=== PATIENT | female | born 1990 | race Caucasian/White ===

== ENCOUNTER 2021-07-04 00:11 | Inpatient (IN) | payer BC ==
[2021-07-04] MEDS ORDERED: Acetaminophen 325 MG Tab PO PRN (00:19)
[2021-07-04] MEDS ORDERED: Sodium Chloride 0.9% 10 ML Syringe FLUSH PRN ×2 (00:19→19:11)
[2021-07-04] MEDS ORDERED: Oxytocin/Normal Saline 30 UNIT/500 ML BAG IV SCH (00:30)
[2021-07-04] MEDS: Misoprostol 25 MCG (1/4 of 100 MCG) Tab VAG PRN ×2 (01:32→08:01)
--- NOTE | 2021-07-04 03:47 | HP ---
HISTORY OF PRESENT ILLNESS: A 31-year-old, G2, P0-0-1-0, female, currently at 41 weeks 1/7 days based on last menstrual period, 09/19/2020. Presents for induction of labor for post-date . The patient denies any bleeding, leakage of fluid, or contractions. She reports good movement. OBSTETRICAL HISTORY: overall unremarkable at AB0, A-positive, AB screen negative. The patient had history of low-lying placenta which resolved on 04/11/2021. The patient's 1-hour glucose tolerance test was 141, but the patient passed 3-hour oral glucose tolerance test. In 3rd trimester, the patient was diagnosed with anemia of with a hemoglobin of 11.7. LABORATORY: Hemoglobin on admission 11.4. Platelets on admission, 175. Rubella immune. RPR nonreactive. Hepatitis B surface antigen nonreactive. HIV is nonreactive. Hepatitis C nonreactive. Gonorrhea and chlamydia negative. Wet prep negative. GBS negative. 1-hour glucose tolerance test 141 but passed 3-hour glucose tolerance test. PAST MEDICAL HISTORY: Significant for miscarriage in 2019. PAST SURGICAL HISTORY: [place] and baby teeth extraction in 2003. FAMILY HISTORY: Sister has PCOS and maternal grandfather has type 2 diabetes. SOCIAL HISTORY: The patient and , Pérez, live in [facility]. Pérez is a manager background at [employer], and the patient works in finance. No pets at home. REVIEW OF SYSTEMS: As per history of present illness. Otherwise, denying fever, chills, cough, cold symptoms, headaches, blurry vision, chest pain, shortness of breath, right upper quadrant pain, nausea, vomiting, or other concerns. MEDICATIONS: vitamins. ALLERGIES: No known drug allergies. OBJECTIVE: Vital Signs: Temperature 97.7, heart rate 66, respiratory rate 16, blood pressure 134/68. HEENT: Grossly unremarkable. Heart: Regular, without murmur. Lungs: Clear to auscultation bilaterally with good chest expansion. Abdomen: Gravid, soft, nontender. Extremities: Mild edema. No tenderness or erythema noted. Skin: Warm, without rashes. Neurological: Appropriate, with no focal deficits. [place]: Contractions every 4 minutes, not felt by the patient. monitor category 1 with 125 base heart rate. Cervical: 1 cm dilated, 60% effaced, negative 2 station. ASSESSMENT: 1. Intrauterine at 41 weeks and 1 day confirmed with last menstrual period of 09/19/2020. 2. -0-1-0. 3. History of low-lying placenta, resolved on 04/11/2021. 4. Impaired glucose tolerance in with passed 3-hour glucose tolerance test. 5. Anemia during , 3rd trimester, with hemoglobin of 11.4 on admission. 6. History of previous miscarriage. PLAN: Routine induction of labor with 25 mcg cytotec Planning for future intrathecal for pain management and possible artifical rupture of membranes once head is well applied against cervix. Seen with medical student. Patient was personally seen and examined with the medical student practitioner student, Eda Ortez. I reviewed the noted scribed on my behalf and necessary changes have been made to reflect my opinion on the history, exam, assessment, and plan- Manuelito Berg MD [facility] /[id number] MTDAdelina
[2021-07-04] MEDS: Lactated Ringers 1,000 ML IV SCH ×3 (11:59→16:53)
[2021-07-04] MEDS ORDERED: Nalbuphine 10 MG/1 ML Vial IM ONE (14:19)
--- NOTE | 2021-07-04 14:31 | PN ---
DATE: 07/04/2021 SUBJECTIVE: The patient is feeling her contractions, felt in the lower abdomen, rated 5/10. She is now status post Cytotec 25 mcg x2. OBJECTIVE: heart tones currently in the 130s baseline range with at least two 15 x 15 beats per minute accelerations, in the last 5 to 10 minutes. Prior to that there were some concerns with recurrent variable decelerations and then what appeared to be some late decelerations that resolved with oxygen and position changes and none currently seen. Vaginal exam revealed her to be 2 cm, 60% to 75% effaced, -1 to -2 station, vertex suspected. Artificial rupture membranes done after discussion with patient yielding clear fluid. ASSESSMENT: Intrauterine at 41-1/7 weeks, confirmed with 8-5/7 weeks ultrasound. GBS negative. G2, P0-0-1-0 with impaired glucose tolerance with history of anemia of . She did have some minimally elevated transient blood pressures, and urinalysis was done and was not positive for preeclampsia. PLAN: She is now status post Cytotec x2 and then artificial rupture membranes as above. We will continue to follow clinically and closely. I did discuss with her following status closely given that she had some late decelerations that did resolve. Currently, she has a reactive strip but will need close followup and serial monitoring. The patient understands and agrees with above treatment plan. [facility] /[id number] MTDD
[2021-07-04] MEDS ORDERED: Ondansetron 4 MG/2 ML SDV IVPUSH PRN (14:48)
[2021-07-04] MEDS ORDERED: Sodium Chloride 0.9% 20 ML SDV ONE (16:25)
[2021-07-04] MEDS ORDERED: fentaNYL 100 MCG/2 ML SDV ITHECAL ONE (16:25)
[2021-07-04] MEDS ORDERED: Sodium Bicarbonate 4.2% 2.5 MEQ/5 ML SDV ONE ×2 (16:25→16:34)
[2021-07-04] MEDS ORDERED: EPINEPHrine 1 MG/ML SDV ONE ×2 (16:25→16:34)
[2021-07-04] MEDS ORDERED: fentaNYL 100 MCG/2 ML SDV ONE (16:34)
--- NOTE | 2021-07-04 16:57 | PCM.SN.2 ---
- Free Text/Narrative Note: Intrathecal. Sitting position, sterile prep and drape. 1% lidocaine w bicarb for skinwheal to L2 L3 interspace. Introducer, 24 ga pencan x 1. I:1000 pf epi wash, 20 mcg pf sufenta, 30 mcg pf fentanyl, 0.4 ml pf NS and 6 mg of 0.75% pf Marcaine injected after CSF aspiration. Pt to L lateral position. Procedure time 1625 to 1700 Time Documentation
[2021-07-04] MEDS ORDERED: Oxytocin/Normal Saline 60 UNIT/1,000 ML BAG ONE (18:37)
[2021-07-04] MEDS ORDERED: Lidocaine 1% 30 ML SDV ONE (18:56)
[2021-07-04] MEDS ORDERED: Docusate Sodium 100 MG Cap PO PRN (19:11)
[2021-07-04] MEDS ORDERED: Oxytocin 10 Units/1 ML SDV IM PRN (19:11)
[2021-07-04] MEDS ORDERED: Benzocaine/Menthol 20%-0.5% Spray 78 GM Cannister TOP PRN (19:11)
[2021-07-04] MEDS ORDERED: Simethicone 80 MG Tab.Chew PO PRN (19:11)
[2021-07-04] MEDS ORDERED: Misoprostol 400 MCG (4 X 100 MCG TAB) RECTAL PRN (19:11)
[2021-07-04] MEDS ORDERED: Tranexamic Acid 1,000 MG in Sodium Chloride 0.9% 100 ML IV PRN (19:11)
[2021-07-04] MEDS ORDERED: Zolpidem 5 MG Tab PO PRN (19:11)
[2021-07-04] MEDS ORDERED: Carboprost Tromethamine 250 MCG/1 ML Amp IM PRN (19:11)
--- NOTE | 2021-07-04 19:16 | PCM.DEL ---
Vacuum Extractor Progress Note - Alternative Labor Strategies Considered Alternative Labor Strategies Considered:: Reports: Yes Strategies Considered:: Reports: Contraction Intensity Adequate, Position Changes Used to Facilitate Rotation & Descent, Empty Bladder, Rest Indications Considered:: Reports: Yes Indications:: Reports: Suspicion of Immediate or Potential Compromise Time Out:: Reports: Yes - Patient Prepared Patient Prepared:: Reports: Yes Informed Consent:: Reports: Yes, Verbal Risks: Reports: Yes Risks Include:: Reports: Laceration, Shoulder Dystocia, Maternal Injury, Other ( injury) Anesthesia/Analgesia Adequate:: Reports: Yes - Probability of Success High Probability of Success:: Reports: Yes Weight Estimated:: Reports: AGA Patient Diabetic:: Reports: No Pelvis Adequate:: Reports: Yes Position:: LUCR[place]IA Asynclitic:: Reports: No Station:: vtx splitting labia - Application Time Maximum Application Time & Number of Pop-Offs Predetermined:: Reports: Yes Number of Times Cup Disengaged:: 2 (2 popoffs and one lost suction when releasing pressure-see nurses notes for further details and times) Type of Vacuum Used:: Reports: Cup: Soft (large kiwi) - Exit Strategy Exit strategy available:: Reports: Yes and resuscitation teams readily available:: Reports: Yes (c section team in house) - General Info Date of Service: 07/04/21 - Patient Data Vitals - Most Recent: Last Vital Signs Temp 97.6 F 07/04/21 16:45 Pulse 78 07/04/21 18:15 Resp 16 07/04/21 18:15 BP 131/73 07/04/21 18:15 Pulse Ox Weight - Most Recent: 90.265 kg Lab Results Last 24 Hours: Laboratory Results - last 24 hr 07/04/21 07/04/21 07/04/21 Range/Units 00:30 00:50 11:41 WBC 8.1 (5.0-10.0) 10^3/uL RBC 3.95 L (4.2-5.4) 10^6/uL Hgb 11.4 L (12.0-16.0) g/dL Hct 35.1 L (37.0-47.0) % MCV 88.9 (80-100) fL MCH 28.9 (27.0-34.0) pg MCHC 32.5 L (33.0-35.0) g/dL Plt Count 175 (150-450) 10^3/uL BUN (7-18) mg/dL Creatinine (0.55-1.02) mg/dL Est Cr Clr Drug Dosing mL/min Estimated GFR (MDRD) Uric Acid (2.6-6.0) mg/dL AST (15-37) U/L ALT (14-59) U/L Lactate Dehydrogenase (81-234) U/L Urine Color Yellow (YELLOW) Urine Appearance Clear (CLEAR) Urine pH 6.0 (5.0-9.0) Ur Specific [place] 1.025 (1.005-1.030) Urine Protein Negative (NEGATIVE) Urine Glucose (UA) Negative (NEGATIVE) Urine Ketones Negative (NEGATIVE) Urine Occult Blood Trace-intact H (NEGATIVE) Urine Nitrite Negative (NEGATIVE) Urine Bilirubin Negative (NEGATIVE) Urine Urobilinogen 0.2 (0.2-1.0) mg/dL Ur Leukocyte Esterase Negative (NEGATIVE) Ur Random Creatinine (No establ ref range) mg/dL U Random Total Protein (0.0-11.9) mg/dL Protein/Creatinin Ratio (<150.0) mg/g SARS-CoV-2 RNA (VARGAS) Negative (NEGATIVE) 07/04/21 07/04/21 07/04/21 Range/Units 11:41 11:55 11:55 WBC 9.5 (5.0-10.0) 10^3/uL RBC 3.93 L (4.2-5.4) 10^6/uL Hgb 11.5 L (12.0-16.0) g/dL Hct 34.9 L (37.0-47.0) % MCV 88.8 (80-100) fL MCH 29.3 (27.0-34.0) pg MCHC 33.0 (33.0-35.0) g/dL Plt Count 175 (150-450) 10^3/uL BUN 10 (7-18) mg/dL Creatinine 0.71 (0.55-1.02) mg/dL Est Cr Clr Drug Dosing 108.46 mL/min Estimated GFR (MDRD) > 60 Uric Acid 5.8 (2.6-6.0) mg/dL AST 13 L (15-37) U/L ALT 14 (14-59) U/L Lactate Dehydrogenase 143 (81-234) U/L Urine Color (YELLOW) Urine Appearance (CLEAR) Urine pH (5.0-9.0) Ur Specific [place] (1.005-1.030) Urine Protein (NEGATIVE) Urine Glucose (UA) (NEGATIVE) Urine Ketones (NEGATIVE) Urine Occult Blood (NEGATIVE) Urine Nitrite (NEGATIVE) Urine Bilirubin (NEGATIVE) Urine Urobilinogen (0.2-1.0) mg/dL Ur Leukocyte Esterase (NEGATIVE) Ur Random Creatinine 122.15 (No establ ref range) mg/dL U Random Total Protein 14.4 H (0.0-11.9) mg/dL Protein/Creatinin Ratio 117.9 (<150.0) mg/g SARS-CoV-2 RNA (VARGAS) (NEGATIVE) Med Orders - Current: Current Medications Acetaminophen (Acetaminophen 325 Mg Tab) 650 mg PO Q4H PRN PRN Reason: Pain/Fever Benzocaine/Menthol (Benzocaine/Menthol 20%-0.5% [place] 78 Gm Cannister) 0 gm TOP Q4H PRN PRN Reason: Perineal comfort measures Carboprost Tromethamine (Carboprost Tromethamine 250 Mcg/1 Ml Amp) 250 mcg IM ASDIRECTED PRN PRN Reason: Excessive vaginal bleeding Docusate Sodium (Docusate Sodium 100 Mg Cap) 100 mg PO BID PRN PRN Reason: Constipation Lactated Ringer's (Ringers, Lactated) 1,000 mls @ 125 mls/hr IV ASDIRECTED IVONNE Last Admin: 07/04/21 16:53 Dose: 125 mls/hr Documented by: Oxytocin/Sodium Chloride (Pitocin In Ns 30 Unit/500 Ml) 30 unit in 500 mls @ 2 mls/hr IV TITRATE IVONNE; Protocol Tranexamic Acid 1,000 mg/ (Sodium Chloride) 110 mls @ 660 mls/hr IV ONETIME PRN PRN Reason: Bleeding Ibuprofen (Ibuprofen 800 Mg Tab) 800 mg PO Q8H PRN PRN Reason: Cramping Misoprostol (Misoprostol 25 Mcg (1/4 Of 100 Mcg) Tab) 25 mcg VAG Q4H PRN PRN Reason: cervical ripening Last Admin: 07/04/21 08:01 Dose: 25 mcg Documented by: Misoprostol (Misoprostol 400 Mcg (4 X 100 Mcg Tab)) 800 mcg RECTAL ONETIME PRN PRN Reason: Hemorrhage Ondansetron HCl (Ondansetron 4 Mg/2 Ml Sdv) 4 mg IVPUSH Q4H PRN PRN Reason: Nausea/Vomiting Last Admin: 07/04/21 15:01 Dose: 4 mg Documented by: Oxytocin (Oxytocin 10 Units/1 Ml Sdv) 10 unit IM ONETIME PRN PRN Reason: Bleeding Prenat Multivit/[place]/Iron/Folic Ac ( Multivitamin With Calcium/Folic Acid/Iron Tab) 1 each PO DAILY IVONNE Simethicone (Simethicone 80 Mg Tab.Chew) 80 mg PO Q4H PRN PRN Reason: Gas Sodium Chloride (Sodium Chloride 0.9% 10 Ml Syringe) 10 ml FLUSH ASDIRECTED PRN PRN Reason: Keep Vein Open Sodium Chloride (Sodium Chloride 0.9% 10 Ml Syringe) 10 ml FLUSH ASDIRECTED PRN PRN Reason: Keep Vein Open Zolpidem Tartrate (Zolpidem 5 Mg Tab) 5 mg PO BEDTIME PRN PRN Reason: Insomnia Discontinued Medications Epinephrine HCl (Epinephrine 1 Mg/Ml Sdv) Confirm Administered Dose 1 mg .ROUTE .STK-MED ONE Stop: 07/04/21 16:35 Fentanyl (Fentanyl 100 Mcg/2 Ml Sdv) Confirm Administered Dose 100 mcg .ROUTE .STK-MED ONE Stop: 07/04/21 16:35 Oxytocin/Sodium Chloride (Pitocin In Ns 30 Unit/500 Ml) Confirm Administered Dose 60 unit in 1,000 mls @ as directed .ROUTE .STK-MED ONE Stop: 07/04/21 18:38 Cefazolin Sodium/Dextrose (Ancef 2 Gm/50 Ml) Confirm Administered Dose 50 mls @ as directed .ROUTE .STK-MED ONE Stop: 07/04/21 18:38 Lidocaine HCl (Lidocaine 1% 30 Ml Sdv) Confirm Administered Dose 30 ml .ROUTE .STK-MED ONE Stop: 07/04/21 18:57 Nalbuphine HCl (Nalbuphine 10 Mg/1 Ml Vial) 20 mg IM ONETIME ONE Stop: 07/04/21 14:20 Last Admin: 07/04/21 15:06 Dose: 20 mg Documented by: Sodium Bicarbonate (Sodium Bicarbonate 4.2% 2.5 Meq/5 Ml Sdv) Confirm Administered Dose 2.5 meq .ROUTE .STK-MED ONE Stop: 07/04/21 16:35 Sufentanil Citrate (Sufentanil 50 Mcg/1 Ml Amp) Confirm Administered Dose 50 mcg .ROUTE .STK-MED ONE Stop: 07/04/21 16:35 - Problem List Review Problem List Initiated/Reviewed/Updated: No - My Orders Last 24 Hours: My Active Orders 07/04/21 Breakfast Regular Diet [DIET] 07/04/21 Lunch Regular Diet [DIET] 07/04/21 13:20 Nitrous Oxide Delivery [RC] ASDIRECTED 07/04/21 14:48 Ondansetron [Zofran] 4 mg IVPUSH Q4H PRN 07/04/21 Dinner Regular Diet [DIET] 07/04/21 19:11 Benzocaine/Menthol [Dermoplast Pain Relief 20%-0.5% [place]] See Dose Instructions TOP Q4H PRN Carboprost Tromethamine [Hemabate DS] 250 mcg IM ASDIRECTED PRN Docusate Sodium [Colace] 100 mg PO BID PRN Ibuprofen [Motrin] 800 mg PO Q8H PRN Oxytocin [Pitocin] 10 unit IM ONETIME PRN Simethicone 80 mg PO Q4H PRN Sodium Chloride 0.9% [Saline Flush] 10 ml FLUSH ASDIRECTED PRN Tranexamic Acid [Cyklokapron] 1,000 mg Sodium Chloride 0.9% [Normal Saline] 100 ml IV ONETIME Zolpidem [Ambien] 5 mg PO BEDTIME PRN miSOPROStoL [Cytotec] 800 mcg RECTAL ONETIME PRN Resuscitation Status Routine 07/04/21 19:12 Up ad Kamila [RC] ASDIRECTED Vital Signs [RC] PFP Assess Lochia [WOMSER] Per Unit Routine Assess Uterine Involution [WOMSER] Per Unit Routine Breast Pump [WOMSER] Per Unit Routine Ice Therapy [OM.PC] Per Unit Routine Perineal Care [OM.PC] Per Unit Routine Saline Lock Insert [OM.PC] Urgent Sitz Bath [OM.PC] Per Unit Routine 07/04/21 19:13 Patient Status Manage Transfer [TRANSFER] Routine 07/05/21 06:00 CBC W/O DIFF,HEMOGRAM [HEME] Routine 07/05/21 09:00 Vit with Ca/FA/Iron [ Plus Iron] 1 each PO DAILY
[2021-07-04] MEDS: Ibuprofen 800 MG Tab PO PRN (23:29)
--- NOTE | 2021-07-05 03:16 | OBOUT ---
DATE: 07/04/2021 DATE AND TIME OF NST: 07/04/2021, 7:50-8. REASON FOR NST: 1. Intrauterine 41 and 1/7 weeks confirmed with 18-5/7 week ultrasound. 2. GBS negative. 3. Impaired glucose tolerance. 4. Intrauterine with hemoglobin in 11 range. 5. G2, P 0-0-1-0. NST INTERPRETATION: During this time period, heart tone baseline is approximately 120 weeks, two 15 x 15 beats per minute accelerations making this strip reactive as well as reassuring. Tocometer reveals potential for contractions during this NST. Vaginal exam done by Eda Ortez, MS3 reveals to be 1.5 cm, -1 and -2 station, vertex suspected and Cytotec 25 mcg was placed. ASSESSMENT: 1. Nonstress test, reactive and reassuring. 2. Tocometer with contractions. PLAN: Cytotec was placed as above. We will continue to follow clinically and closely thereafter. I am following this patient due to Dr. Godinez having a personal illness and did discuss with the patient. She understands and agrees, we will continue to follow clinically and closely. [facility] /[id number]
--- NOTE | 2021-07-05 07:22 | PN ---
DATE: 07/04/2021 SUBJECTIVE: The patient is now comfortable, status post intrathecal. She used some Nubain earlier. OBJECTIVE: heart tones in the 110s to 120s. Two accelerations were seen in the last 10 minutes. Tocometer, difficult to read contractions. We will follow closely. Last blood pressure 127/75, heart rate 73. ASSESSMENT AND PLAN: Intrauterine at 41 and 1/7 weeks, confirmed with 8 and 5/7 weeks ultrasound. GBS negative, impaired glucose tolerance, G2, P0-0- 1-0, now status post Cytotec 25 mcg x2 and artificial rupture of membranes with intrathecal as noted recently. We will continue to follow clinically and closely. I did discuss with the patient potential need for Pitocin if concerns with contractions slowing down and we will continue to follow clinically and closely with serial monitoring as well. The patient understands and agrees with the above treatment plan. [facility] /[id number]
[2021-07-05] MEDS: Ibuprofen 800 MG Tab PO PRN ×2 (08:32→17:08)
[2021-07-05] MEDS: Prenatal Multivitamin with Calcium/Folic Acid/Iron Tab PO SCH (08:32)
--- NOTE | 2021-07-05 08:58 | DEL ---
DATE: 07/04/2021 PREOPERATIVE DIAGNOSIS: 1. Intrauterine at 41 and 1/7 weeks, confirmed with 8 and 5/7 week ultrasound. 2. Recurrent heart rate decelerations. 3. GBS negative. 4. Impaired glucose tolerance. 5. Anemia of . Hemoglobin 11.5 upon admission. 6. G2, P0-0-1-0. POSTOPERATIVE DIAGNOSES: 1. Intrauterine at 41 and 1/7 weeks, confirmed with 8 and 5/7 week ultrasound, delivered via vacuum-assisted vaginal delivery. 2. Recurrent heart rate decelerations. 3. GBS negative. 4. Impaired glucose tolerance. 5. Anemia of . Hemoglobin 11.5 upon admission. 6. G2, P0-0-1-0. 7. Nuchal cord x2, reduced bluntly at delivery that were tight in nature. 8. Left vaginal sidewall laceration, bleeding and repaired. 9. First-degree perineal abrasion/laceration, nonbleeding, non-repaired after discussion with the patient. 10.Old blood noted with delivery of placenta, suspect abruption in second stage of labor. PROCEDURES PERFORMED: Cytotec 25 mcg x2 on early childhood associate of 07/04/2021 followed by NST, artificial rupture of membranes and subsequent vacuum-assisted vaginal delivery with left vaginal sidewall laceration, repaired. Pitocin augmentation. EEG TECHNICIAN: Eda Ortez, MS3. ANESTHESIA/ANALGESIA: Patient did receive some Nubain in the first stage of labor. She also received an intrathecal near the ending of the first stage of labor. EBL: 200 mL. FINDINGS: 1. Male, score 6 and 8, weight pending. 2. Nuchal cord x2 that was tight and reduced bluntly with delivery. 3. Old blood noted with delivery of placenta, suspect abruption in the second stage of labor. SUMMARY OF EVENTS: The patient is a 31-year-old, G2, P0-0-1-0 intrauterine at 41 and 1/7 weeks, confirmed with 8 and 5/7 week ultrasound admitted on the above date with the above diagnoses, underwent Cytotec x2 followed by NST, then artificial rupture of membranes as well as some Pitocin augmentation. Pitocin augmentation was started after she received her intrathecal. Subsequently, she dilated quickly from 5 to 6 cm to complete within 2 hours or less, and during this time period, decelerations were noted, and I was called to the room stat as patient was complete with decelerations. OR crew was called as well as assist physician called to be present until delivery was completed and for potential delivery in the operating room. Upon my arrival, I did discuss with the patient the risks, benefits, alternatives, complications of , potential for , and as baby had recovery and heart tones in the normal range, position change ensued and she had already been given oxygen, Pitocin had been stopped, and IV fluids were given. Subsequently, I did evaluate her. She was found to be in the second stage of labor and she started pushing with contractions. OR crew arrived around this time as well. Subsequently with patient pushing, descent was noted to the point that vertex was splitting the labia. Prior to this, a [place] catheter was placed by nurse. heart tone recovery was noted, but then recurrent decelerations started again. Subsequently, I did discuss with the patient and her male partner risks, benefits, alternatives, and complications of vacuum-assisted vaginal delivery. They understood and agreed and wished to proceed. Verbal consent was obtained and questions were answered. Subsequently, with the next episode of pushing with vertex seen splitting the labia, kiwi vacuum large cup was applied, pumped up to the green, and with gentle pulling with her pushing with contractions, further descent was noted and pop-off x1 was noted. Subsequently, status was evaluated. There was some recovery and then deceleration again, and subsequently for the 2nd time, kiwi vacuum was applied and pumped up to the green with vertex seen splitting the labia, and with gentle pulling, further descent was noted. Subsequently, 2nd pop-off was noted and believed to be related to loss of suction. recovery was then noted with heart tones in between contractions and the patient continued to push. Descent was slowed and then decelerations recurred again. Subsequently, a new kiwi vacuum large cup was called for, applied to the vertex, pumped up to the green, and with gentle pulling with her pushing, further descent was noted. With releasing suction, kiwi vacuum accidentally came disengaged and was not considered a pop-off. The patient continued pushing with contractions, and subsequently with the next deceleration, kiwi vacuum was applied, and with gentle pulling, with patient pushing, vertex was delivered. Vacuum was disengaged. Nuchal cord x2 was noted and reduced bluntly with delivery of the infant via somersault method and then releasing cord over the head. Subsequently, baby's mouth and nares were suctioned. Cord was doubly clamped and cut and was infant was brought over to team for resuscitation. Then, approximately 10 mL of cord blood was obtained for labs. Placenta was then delivered with gentle cord traction and fundal massage within 5 to 10 minutes with old blood clot noted with delivery of placenta with suspected abruption. Thereafter, perineum, vagina and perirectal areas were examined and noted to have a small first-degree perineal laceration/abrasion, nonbleeding, non-repaired after discussion with patient, and a left vaginal sidewall laceration that was bleeding and repaired in usual fashion using 3-0 Vicryl. Mother and infant are currently stable at the time of dictation. [facility] /[id number]
--- NOTE | 2021-07-05 10:52 | PN ---
DATE: 07/05/2021 SUBJECTIVE: The patient is doing well post vacuum-assisted vaginal delivery day #1. She is ambulating and voiding appropriately. Pain is under control with ibuprofen. Bleeding is under control per patient. OBJECTIVE: Vital Signs: Temp 97.5 degrees Fahrenheit, pulse 67, blood pressure 116/68 with a mean of 84, respiratory rate 16, O2 sat 98. Lungs: Clear to auscultation bilaterally. Heart: S1, S2. Regular rate and rhythm. Abdomen: Firm uterus below umbilicus. Extremities: Compression socks on, minimal swelling. No erythema or tenderness noted. LABORATORY DATA: White blood cell count 15, hemoglobin 10, hematocrit 31.6, platelets 142. ASSESSMENT: 1. Vacuum-assisted vaginal delivery at 41-1/7 weeks, status post lateral vaginal wall laceration repair. 2. ABO A positive, antibody screen negative, rubella immune, GBS negative. 3. G2, P1-0-1-1. 4. History of low-lying placenta, resolved on 04/11/2021 5. Impaired glucose tolerance in , passed 3-hour glucose tolerance test. 6. Anemia in , third trimester. 7. History of previous miscarriage. PLAN: We will continue to follow clinically and closely. Patient will stay at least one more night to follow up with , labs, and baby circumcision tomorrow. The patient agrees with the above treatment and plan. The patient was seen by myself and Dr. Godinez. Assessment and plan are under advisement of Dr. Godinez. [facility] /[id number] MTDD
--- NOTE | 2021-07-05 21:21 | PCM.LDHP ---
L&D History of Present Illness - General Date of Service: 07/05/21 Admit Problem/Dx: Patient Status Order with Admit Dx/Problem 07/04/21 00:20 Patient Status [ADT] Routine Admission Diagnosis/Problem Admission Diagnosis/Problem Intrauterine Source of Information: Patient History Limitations: Reports: No Limitations - History of Present Illness Pain Score: 2 - Related Data Allergies/Adverse Reactions: Allergies Allergy/AdvReac Type Severity Reaction Status Date / Time No Known Allergies Allergy Verified 07/04/21 00:18 Home Medications: Home Meds Pnv No.95/Ferrous Fum/Folic AC [ Caplet] 1 tab PO DAILY 06/29/21 [History] Past Medical History [employer] History: Reports: , Spontaneous Other OB/BYN History: 02/2020, currently Endocrine/Metabolic History: Reports: Other (See Below) Other Endocrine/Metabolic History: impaired glucose- passed 3 hour test Hematologic History: Reports: Anemia - Past Surgical History HEENT Surgical History: Reports: Oral Surgery Social & Family History - Family History Family Medical History: No Pertinent Family History - Tobacco Use Tobacco Use Status *Q: Never Tobacco User Second Hand Smoke Exposure: No - Caffeine Use Caffeine Use: Reports: None - Recreational Drug Use Recreational Drug Use: No L&D Exam - Vital Signs Vital Signs: Last Vital Signs Temp 97.5 F 07/05/21 07:51 Pulse 67 07/05/21 07:51 Resp 16 07/05/21 07:51 BP 116/68 07/05/21 07:51 Pulse Ox 98 07/05/21 07:51 Weight: 199 lb - OB Specific Contraction Duration (sec): 80-150 Contraction Frequency (min): 1.5-2 Contraction Intensity: Strong - Patient Data Lab Results Last 24 hrs: Laboratory Results - last 24 hr 07/05/21 Range/Units 06:00 WBC 15.0 H (5.0-10.0) 10^3/uL RBC 3.48 L (4.2-5.4) 10^6/uL Hgb 10.0 L D (12.0-16.0) g/dL Hct 31.6 L (37.0-47.0) % MCV 90.8 (80-100) fL MCH 28.7 (27.0-34.0) pg MCHC 31.6 L (33.0-35.0) g/dL Plt Count 142 L (150-450) 10^3/uL Result Diagrams: 07/05/21 06:00 07/04/21 11:55 Orders Last 24hrs: Active Orders 24 hr Category Date Time Status Consult to Designer [CONS] Routine Cons 07/05/21 10:52 Active Vit with Ca/FA/Iron [ Plus Iron] Med 07/05/21 09:00 Active 1 each PO DAILY Medication Orders Acetaminophen (Acetaminophen 325 Mg Tab) 650 mg PO Q4H PRN PRN Reason: Pain/Fever Benzocaine/Menthol (Benzocaine/Menthol 20%-0.5% [place] 78 Gm Cannister) 0 gm TOP Q4H PRN PRN Reason: Perineal comfort measures Last Admin: 07/04/21 23:29 Dose: 1 spray Documented by: CHEIKH Carboprost Tromethamine (Carboprost Tromethamine 250 Mcg/1 Ml Amp) 250 mcg IM ASDIRECTED PRN PRN Reason: Excessive vaginal bleeding Docusate Sodium (Docusate Sodium 100 Mg Cap) 100 mg PO BID PRN PRN Reason: Constipation Lactated Ringer's (Ringers, Lactated) 1,000 mls @ 125 mls/hr IV ASDIRECTED IVONNE Last Admin: 07/04/21 16:53 Dose: 125 mls/hr Documented by: Infusion: 07/04/21 16:53 Dose: 125 mls/hr Documented by: Admin: 07/04/21 16:34 Dose: 125 mls/hr Documented by: Infusion: 07/04/21 16:34 Dose: 999 mls/hr Documented by: Infusion: 07/04/21 12:09 Dose: 125 mls/hr Documented by: Admin: 07/04/21 11:59 Dose: 999 mls/hr Documented by: GRETTA Oxytocin/Sodium Chloride (Pitocin In Ns 30 Unit/500 Ml) 30 unit in 500 mls @ 2 mls/hr IV TITRATE IVONNE; Protocol Last Titration: 07/04/21 22:00 Dose: 0 munits/min, 0 mls/hr Documented by: Titration: 07/04/21 21:00 Dose: 50 munits/min, 50 mls/hr Documented by: Titration: 07/04/21 20:00 Dose: 125 munits/min, 125 mls/hr Documented by: Titration: 07/04/21 19:15 Dose: 250 munits/min, 250 mls/hr Documented by: Admin: 07/04/21 19:00 Dose: 500 munits/min, 500 mls/hr Documented by: CHEIKH Tranexamic Acid 1,000 mg/ (Sodium Chloride) 110 mls @ 660 mls/hr IV ONETIME PRN PRN Reason: Bleeding Ibuprofen (Ibuprofen 800 Mg Tab) 800 mg PO Q8H PRN PRN Reason: Cramping Last Admin: 07/05/21 17:08 Dose: 800 mg Documented by: Admin: 07/05/21 08:32 Dose: 800 mg Documented by: Admin: 07/04/21 23:29 Dose: 800 mg Documented by: CHEIKH Misoprostol (Misoprostol 25 Mcg (1/4 Of 100 Mcg) Tab) 25 mcg VAG Q4H PRN PRN Reason: cervical ripening Last Admin: 07/04/21 08:01 Dose: 25 mcg Documented by: Admin: 07/04/21 01:32 Dose: 25 mcg Documented by: KAMRAN Misoprostol (Misoprostol 400 Mcg (4 X 100 Mcg Tab)) 800 mcg RECTAL ONETIME PRN PRN Reason: Hemorrhage Ondansetron HCl (Ondansetron 4 Mg/2 Ml Sdv) 4 mg IVPUSH Q4H PRN PRN Reason: Nausea/Vomiting Last Admin: 07/04/21 15:01 Dose: 4 mg Documented by: GRETTA Oxytocin (Oxytocin 10 Units/1 Ml Sdv) 10 unit IM ONETIME PRN PRN Reason: Bleeding Prenat Multivit/[place]/Iron/Folic Ac ( Multivitamin With Calcium/Folic Acid/Iron Tab) 1 each PO DAILY IVONNE Last Admin: 07/05/21 08:32 Dose: 1 each Documented by: GRETTA Simethicone (Simethicone 80 Mg Tab.Chew) 80 mg PO Q4H PRN PRN Reason: Gas Sodium Chloride (Sodium Chloride 0.9% 10 Ml Syringe) 10 ml FLUSH ASDIRECTED PRN PRN Reason: Keep Vein Open Sodium Chloride (Sodium Chloride 0.9% 10 Ml Syringe) 10 ml FLUSH ASDIRECTED PRN PRN Reason: Keep Vein Open Zolpidem Tartrate (Zolpidem 5 Mg Tab) 5 mg PO BEDTIME PRN PRN Reason: Insomnia
[2021-07-06] MEDS: Ibuprofen 800 MG Tab PO PRN ×2 (00:23→08:29)
[2021-07-06] MEDS: Prenatal Multivitamin with Calcium/Folic Acid/Iron Tab PO SCH (08:29)
--- NOTE | 2021-07-08 00:12 | DISCH ---
ADMITTING DIAGNOSES: 1. Intrauterine at 41 weeks and 1/7 days confirmed by last menstrual period on 09/19/2020. 2. G2, P0-0-1-0. 3. History of low-lying placenta, resolved on 04/11/2021. 4. Impaired glucose tolerance in , passed 3-hour glucose tolerance test. 5. Anemia of third trimester with hemoglobin of 11.4 on admission. 6. History of previous miscarriage. 7. Blood type A positive, rubella immune, and group B strep negative. DISCHARGE DIAGNOSES: 1. Intrauterine at 41 weeks and 1/7 days confirmed by last menstrual period on 09/19/2020. 2. 2, now P1-0-1-1, status post vacuum-assisted vaginal delivery under intrathecal anesthesia. 3. Status post first-degree laceration repair of lateral vaginal wall. 4. History of low-lying placenta, resolved on 04/11/2021. 5. Impaired glucose tolerance in , passed 3-hour glucose tolerance test. 6. Anemia of third trimester with hemoglobin of 11.4 on admission. 7. History of previous miscarriage. 8. Blood type A positive, rubella immune, and group B strep negative. PROCEDURES PERFORMED: 1. Vacuum-assisted vaginal delivery with first-degree laceration repair under intrathecal anesthesia. 2. Artificial rupture of membranes. BRIEF HISTORY: A 31-year-old female with the above-listed diagnoses presented to hospital for induction due to post-date . Labor was induced with Cytotec, artificial rupture of membranes, and Pitocin. Pt started having elevated blood pressures, PIH labs were ordered and ruled out preeclampsia with severe features. Blood pressures never exceeded 160/90 and no further interventions were needed. Stage II of labor was significant for repetitive bradycardia and late decelerations. Labor was then assisted with vacuum and 2 pop-offs. Estimated blood loss was 250 cc and pain relief was achieved with intrathecal and Nubain. HOSPITAL COURSE: Has been good. Bleeding has been decreasing throughout her hospital stay. She has been well, ambulating and voiding without issues. She has not had a bowel movement but is passing gas. There are no signs of infection, hemorrhage or complications. She also denies any chest pain, shortness of breath or trouble tolerating her diet. DISCHARGE CONDITION: Good. PHYSICAL EXAMINATION: Vital Signs: Temp 97.7 degrees Fahrenheit, heart rate 77, respiratory rate 16, blood pressure 119/64. Heart: Regular rate and rhythm without obvious murmur. Lungs: Clear to auscultation with good chest expansion. Abdomen: Soft, nontender. Fundus is firm at umbilicus. Extremities: No edema, erythema or tenderness noted. LABORATORY DATA: Admission hemoglobin 11.4. Admission platelets 175. Discharge hemoglobin 10.0. Discharge platelets 142. DISPOSITION: Home with family. MEDICATIONS: vitamin with iron. FOLLOWUP: She will be seen in 6 weeks for routine examination and baby will be seen on Sunday, 07/08, for check. INSTRUCTIONS: Routine post vaginal delivery instructions for mother were provided and all questions were answered. She was told to seek care if discharge becomes foul smelling, she starts to run a fever or has enlarged, tender or red breasts. The patient was seen by myself and Dr. Godinez. Assessment and plan are under advisement of Dr. Godinez. [facility] /[id number] MTDD
== END 2021-07-06 13:40 | disposition home or self-care (01) | DRG 560 ==
LOC: DL.OBCHECK 00:11 → DL.OB 00:20 → OBSVTOIN 18:51 → DL.OB 18:51
PROVIDERS: ADMIT Family Medicine; ATTEND Family Medicine
PROC: 10D07Z6 Extraction of Products of Conception, Vacuum, Via Natural or Artificial Opening (ICD-10-PCS; principal; 2021-07-04)
PROC: 10907ZC Drainage of Amniotic Fluid, Therapeutic from Products of Conception, Via Natural or Artificial Opening (ICD-10-PCS; 2021-07-04)
PROC: 0HQ9XZZ Repair Perineum Skin, External Approach (ICD-10-PCS; 2021-07-04)
PROC: 3E033VJ Introduction of Other Hormone into Peripheral Vein, Percutaneous Approach (ICD-10-PCS; 2021-07-04)
PROC: 3E0P7VZ Introduction of Hormone into Female Reproductive, Via Natural or Artificial Opening (ICD-10-PCS; 2021-07-04)
PROC: 4A1HXCZ Monitoring of Products of Conception, Cardiac Rate, External Approach (ICD-10-PCS; 2021-07-04)
PROC: 00HU33Z Insertion of Infusion Device into Spinal Canal, Percutaneous Approach (ICD-10-PCS; 2021-07-04)
PROC: 3E0R3BZ Introduction of Anesthetic Agent into Spinal Canal, Percutaneous Approach (ICD-10-PCS; 2021-07-04)
DX: O48.0 Post-term pregnancy (principal); Z3A.41 41 weeks gestation of pregnancy; Z37.0 Single live birth; O99.02 Anemia complicating childbirth; D64.9 Anemia, unspecified; O70.0 First degree perineal laceration during delivery; Z20.822 Contact with and (suspected) exposure to COVID-19
CPT/HCPCS: 01967; 36415; 51702; 59409; 81003; 82565; 82570; 83615; 84156; 84450; 84460; 84520; 84550; 85027; A9270-GY; J0171; J2300; J2405; J2590; J3010; J7120; U0002

== ENCOUNTER 2022-09-12 07:55 | Inpatient (IN) | payer OTHER ==
[2022-09-12] MEDS ORDERED: Lactated Ringers 1,000 ML IV ONE (08:45)
[2022-09-12] MEDS ORDERED: fentaNYL 100 MCG/2 ML SDV SUBCUT PRN (08:45)
[2022-09-12] MEDS ORDERED: Lidocaine 1% 30 ML SDV INJECT PRN (08:45)
[2022-09-12] MEDS ORDERED: Carboprost Tromethamine 250 MCG/1 ML Amp IM PRN (08:45)
[2022-09-12] MEDS ORDERED: Penicillin G Potassium 3 MILLUNITS in Sodium Chloride 0.9% 100 ML IV SCH (08:45)
[2022-09-12] MEDS ORDERED: Tranexamic Acid 1,000 MG in Sodium Chloride 0.9% 100 ML IV PRN (08:45)
[2022-09-12] MEDS ORDERED: Sodium Chloride 0.9% 10 ML Syringe FLUSH PRN (08:45)
[2022-09-12] MEDS ORDERED: Misoprostol 400 MCG (4 X 100 MCG TAB) RECTAL PRN (08:45)
[2022-09-12] MEDS ORDERED: Ondansetron 4 MG/2 ML SDV IVPUSH PRN (08:45)
[2022-09-12] MEDS ORDERED: Penicillin G Potassium 5 MILLUNITS in Sodium Chloride 0.9% 100 ML IV ONE (08:45)
[2022-09-12] MEDS ORDERED: Methylergonovine 0.2 MG/1 ML Amp IM PRN (08:45)
[2022-09-12] MEDS ORDERED: Lactated Ringers 1,000 ML IV SCH (08:45)
[2022-09-12] MEDS ORDERED: Oxytocin/Normal Saline 30 UNIT/500 ML BAG IV SCH (08:45)
[2022-09-12] MEDS ORDERED: Acetaminophen 325 MG Tab PO PRN (08:45)
[2022-09-12] MEDS ORDERED: Oxytocin 10 Units/1 ML SDV IM PRN (09:39)
[2022-09-12] MEDS ORDERED: Benzocaine/Menthol 20%-0.5% Spray 78 GM Cannister TOP PRN (09:39)
[2022-09-12] MEDS ORDERED: Ibuprofen 800 MG Tab PO PRN (09:39)
[2022-09-12] MEDS ORDERED: Simethicone 80 MG Tab.Chew PO PRN (09:39)
[2022-09-12] MEDS: Docusate Sodium 100 MG Cap PO PRN (20:30)
[2022-09-12] MEDS: Acetaminophen 325 MG Tab PO PRN (22:36)
[2022-09-13] MEDS: Docusate Sodium 100 MG Cap PO PRN (08:11)
[2022-09-13] MEDS: Prenatal Multivitamin with Calcium/Folic Acid/Iron Tab PO SCH (08:11)
[2022-09-14] MEDS: Prenatal Multivitamin with Calcium/Folic Acid/Iron Tab PO SCH (08:28)
[2022-09-14] MEDS: Acetaminophen 325 MG Tab PO PRN (08:32)
== END 2022-09-14 14:20 | disposition home or self-care (01) | DRG 807 ==
LOC: DL.OBCHECK 07:55 → DL.OB 09:08 → UNDOADMIN 09:08
PROVIDERS: ADMIT Family Medicine; ATTEND Family Medicine
PROC: 10E0XZZ Delivery of Products of Conception, External Approach (ICD-10-PCS; principal; 2022-09-12)
DX: O99.824 Streptococcus B carrier state complicating childbirth (principal); Z37.0 Single live birth; Z3A.39 39 weeks gestation of pregnancy; O99.02 Anemia complicating childbirth; D64.9 Anemia, unspecified; O99.814 Abnormal glucose complicating childbirth; Z20.822 Contact with and (suspected) exposure to COVID-19
CPT/HCPCS: 36415; 59409; 85027; A9270-GY; J2405; J2540; J2590; J7120; U0002